=== PATIENT | female | born 1960 | race Caucasian/White ===

== ENCOUNTER → 2021-03-05 | Outpatient (CLI) | payer OTHER | LOC: COL.RAD 07:35 | DX: K31.1 Adult hypertrophic pyloric stenosis (principal); R10.9 Unspecified abdominal pain; R14.0 Abdominal distension (gaseous); R68.81 Early satiety; R11.0 Nausea | CPT/HCPCS: A9541 ==

== ENCOUNTER 2022-10-21 11:08 | Emergency (ER) | payer OTHER ==
[~2022-10-21] VITALS: Ht 142.2 cm; Wt 72.7 kg
[2022-10-21] MEDS ORDERED: GLUCOPHAGE1000 MG PO (11:29)
[2022-10-21] MEDS ORDERED: PRILOSEC 20MG20 MG PO (11:29)
[2022-10-21] MEDS ORDERED: JANUVIA 100MG100 MG PO (11:29)
[2022-10-21 12:28] LABS: HEMATOCRIT 39.1 % (37.0-47.0); HEMOGLOBIN 12.9 g/dl (12.5-16.0); MEAN CELL VOLUME 95 fl (80.0-100.0); MEAN CORPUSCULAR HEMOGLOBIN 31 pg (27-31); MEAN CORPUSCULAR HGB CONC 33 g/dl (33.0-37.0); MEAN PLATELET VOLUME 10.7 fl (7.4-10.4); PLATELET COUNT 382 K/mm3 (130-400); RED BLOOD COUNT 4.12 M/mm3 (4.10-5.30); REDCELL DISTRIBUTION WIDTH-CV 12.7 % (11.5-14.5)
[2022-10-21 12:45] LABS: ALANINE AMINOTRANSFERASE 14 U/L (0-55); ALBUMIN 3.7 gm/dL (3.4-4.8); ALKALINE PHOSPHATASE 135 U/L (40-150); ANION GAP 12 mmol/L (7-16); AST,SGOT 11 U/L (5-34); BILIRUBIN,TOTAL 0.5 mg/dL (0.2-1.2); BLOOD UREA NITROGEN 9 mg/dL (10-20); CALCIUM 9.3 mg/dL (8.4-10.2); CARBON DIOXIDE 22 mmol/L (23-31); CHLORIDE 104 mmol/L (98-107); GLUCOSE 149 mg/dL (70-99); POTASSIUM 3.9 mmol/L (3.5-4.5); SODIUM 138 mmol/L (136-145); TOTAL PROTEIN 7.6 gm/dL (6.2-8.1)
[2022-10-21 12:49] LABS: BAND 24 % (0-10); LYMPHOCYTE 11 % (20.0-51.0); NEUTROPHILS 63 % (42.0-75.2)
[2022-10-21 12:50] LABS: PLATELET ESTIMATE NORMAL (NORMAL); TOXIC GRANULATION PRESENT
[2022-10-21 14:42] LABS: TROPONIN-I < 0.010 ng/mL (0.00-0.033)
[2022-10-21 14:48] LABS: COLLECTION METHOD CLEAN CATCH
[2022-10-21 15:40] LABS: SQUAMOUS EPITHELIAL 0-2 /hpf (0-10); URINE BACTERIA None Seen /hpf (NONE SEEN)
[2022-10-21 15:41] LABS: PH 5.5 (5-8); URINE APPEARANCE Clear (CLEAR/HAZY); URINE BLOOD 1+ (NEGATIVE); URINE COLOR Yellow (YELLOW); URINE GLUCOSE Negative (NEGATIVE); URINE KETONE Negative (NEGATIVE); URINE NITRATE Negative (NEGATIVE); URINE PROTEIN(semi-quant) Negative (NEGATIVE); URINE UROBILINOGEN 0.2 (NEGATIVE)
[2022-10-21] MEDS ORDERED: DOXYCYCLINE 10100 MG PO (15:54)
[2022-10-21] MEDS ORDERED: MONUROL 3 GM3 G/PKT PO (15:55)
[2022-10-21 16:38] VITALS: BP 138/70; PULSE 108; TEMP 99.2
== END 2022-10-21 16:38 | disposition home or self-care (01) ==
LOC: COL.ER 11:08
PROVIDERS: Physician Assistant
DX: N39.0 Urinary tract infection, site not specified (principal); J18.9 Pneumonia, unspecified organism; E66.9 Obesity, unspecified; Z88.0 Allergy status to penicillin; Z28.310 Unvaccinated for COVID-19; Z68.35 Body mass index [BMI] 35.0-35.9, adult; Z20.822 Contact with and (suspected) exposure to COVID-19
CPT/HCPCS: J0696

== ENCOUNTER 2023-12-17 09:04 | Emergency (ER) | payer MEDICARE, OTHER ==
[~2023-12-17] VITALS: Ht 142.2 cm; Wt 72.7 kg
[~2023-12-17 09:04] MED LIST: DOXYCYCLINE 10100 MG PO; GLUCOPHAGE1000 MG PO; JANUVIA 100MG100 MG PO; MONUROL 3 GM3 G/PKT PO; PREDNISONE50 MG PO; PRILOSEC 20MG20 MG PO
[2023-12-17 09:12] VITALS: TEMP 98.6
[2023-12-17 09:54] LABS: ALBUMIN 3.5 g/dL (3.4-4.8); BILIRUBIN,TOTAL 0.4 mg/dL (0.2-1.2); C-REACTIVE PROTEIN 1.84 mg/dL (0.00-0.50); CALCIUM 8.8 mg/dL (8.4-10.2); CREATININE, serum 0.81 mg/dL (0.57-1.11); POTASSIUM 4.1 mEq/L (3.5-4.5); TOTAL PROTEIN 6.9 g/dl (6.2-8.1)
[2023-12-17 10:37] LABS: BASO # 0.1 K/mm3 (0.0-0.2); BASO % 0.7 % (0.0-2.0); EOS # 0.1 K/mm3 (0.0-0.7); EOS % 1.3 % (0.0-4.0); GRAN # 6.5 K/mm3 (1.4-6.5); GRAN % 67.4 % (42.2-75.2); HEMATOCRIT 39.7 % (37.0-47.0); HEMOGLOBIN 13.5 g/dl (12.5-16.0); LYMPH # 2.2 K/mm3 (1.2-3.4); LYMPH % 22.8 % (20.0-51.0); MEAN CELL VOLUME 90 fl (80.0-100.0); MEAN CORPUSCULAR HEMOGLOBIN 31 pg (27-31); MEAN CORPUSCULAR HGB CONC 34 g/dl (33.0-37.0); MEAN PLATELET VOLUME 10.9 fl (7.4-10.4); MONO # 0.6 K/mm3 (0.1-0.6); MONO % 6.6 % (1.7-9.3); PLATELET COUNT 418 K/mm3 (130-400); RED BLOOD COUNT 4.39 M/mm3 (4.10-5.30); REDCELL DISTRIBUTION WIDTH-CV 12.8 % (11.5-14.5)
[2023-12-17 10:43] LABS: ERYTHROCYTE SEDIMENTATION RATE 27 mm/hr (0-30)
[2023-12-17] MEDS ORDERED: methylPREDNISolone Sod Succ 125 MG/2 ML VIAL IV ONE (11:30)
[2023-12-17] MEDS ORDERED: PREDNISONE10 MG PO (11:35)
[2023-12-17 11:59] VITALS: BP 126/68; PULSE 74
== END 2023-12-17 12:11 | disposition home or self-care (01) ==
LOC: COL.ER 09:04
PROVIDERS: Family Medicine
DX: M25.542 Pain in joints of left hand (principal); M25.541 Pain in joints of right hand; R21 Rash and other nonspecific skin eruption
CPT/HCPCS: J2919